=== PATIENT | male | born 2000 | race Caucasian/White ===

== ENCOUNTER 2019-11-18 07:52 | Emergency (ER) | payer MEDICAID ==
[~2019-11-18] VITALS: Ht 165.1 cm; Wt 72.6 kg
[2019-11-18 07:55] VITALS: BP 144/77
[2019-11-18] MEDS ORDERED: ACETAMINOPHEN EXTRA STRENGTH 500 MG TAB PO ONE (08:15)
[2019-11-18] MEDS ORDERED: methocarbamoL 500 MG TAB PO SCH (08:15)
[2019-11-18] MEDS ORDERED: KETOROLAC 30 MG/ML VIAL IM ONE (08:15)
--- NOTE | 2019-11-18 08:16 | NUR ---
19 Y/O MALE C/O RIGHT SIDED NECK PAIN X2 DAYS. PT STATES THAT HE WOKE UP YESTERDAY WITH EXCRUIATING NECK PAIN AND WAS UNABLE TO MOVE HIS NECK. PAIN RADIATED DOWN TO HIS SHOULDERS ON RIGHT SIDE. PT STATES HE IS IN SO MUCH PAIN, IS IT CAUSING HIM TO VOMIT. NO DEFORMITY NOTED TO AREA. DENIES ANY RECENT TRAUMA. NO PMH NKA
--- NOTE | 2019-11-18 08:24 | NUR ---
MEDICATIONS ADMINISTERED
[2019-11-18 08:54] VITALS: BP 144/77
--- NOTE | 2019-11-18 08:55 | NUR ---
Patient discharged with v/s stable. Written and verbal after care instructions given and explained. Patient alert, oriented and verbalized understanding of instructions. Ambulatory with steady gait. All questions addressed prior to discharge. ID band removed. Patient advised to follow up with PMD. Rx of NORCO, NAPROSYN, ROBAXIN given. Patient educated on indication of medication including possible reaction and side effects. Opportunity to ask questions provided and answered.
== END 2019-11-18 08:55 | disposition home or self-care (01) ==
LOC: MED 07:52
DX: M54.2 Cervicalgia (principal); M79.10 Myalgia, unspecified site; M25.511 Pain in right shoulder
CPT/HCPCS: 96372; 99283; J1885